=== PATIENT | male | born 1970 | race Caucasian/White ===

== ENCOUNTER 2025-07-05 11:51 | Outpatient (OUT) | payer BC, SELFPAY ==
--- OUTSIDE RECORDS SUMMARY | 2025-06-24 09:52 | XMS_ITS | Continuity of Care Document ---
Author Organization [facility] Address [address] [place] [address] Phone Care Team Providers Care Specialties Operator Name Role Phone Cornelius Arellano DO Primary Care Provider Cornelius Arellano DO Attending Provider [phone] Care Teams Patient Care Team Team Status: Active Member Role/Relationship Status Dates Cornelius Arellano DO Primary Care Provider Active Patient Care Team Team Status: Inactive Member Role/Relationship Status Dates Cornelius Arellano DO Primary Care Provider Active Start: June 24, 2025 End: June 24enjajonatan Arellano DOAttending ProviderActiveStart: June 24, 2025 End: June 24, 2025 Chief Complaint and Reason for Visit Chief Complaint Admit Date Wellness June 24, 2025 2:14pm Reason for Visit Admit Date Hypertension June 24, 2025 2:14pm Obesity June 24, 2025 2:14pm Positive colorectal cancer screening usi ng Cologuard test June 24, 2025 2:14pm Screening PSA (prostate specific antigen ) June 24, 2025 2:14pm Wellness examination June 24, 2025 2:14pm Allergies, Adverse Reactions, Alerts Allergen Type Severity Reaction Last Updated Verified Status No Known Allergies Allergy Unknown June 24, 2025 2:16pmYesActive Social History Smoking Status Unknown if ever smoked Observation Status Observation Response Date of Response Legal Sex Male (finding) Sex Assigned At Birth1970 Family History Relationship Condition Age at Onset Recorded Date/T sofi brother Unknown Heart diseaseUnknownfatherDeceasedUnknownMotor vehicle accidentUnknown Problems Active Problems Problem Diagnosis/Recorded Date Onset Date Stat us Screening PSA (prostate spec ific antigen) June 24, 2025 2:46pm Unknown Active Wellness examination June 22, 2025 8:04am Unknow n Active Positive colorectal cancer s creening using Cologuard test June 24, 2025 2:46pm Unknown Active Hypertension June 24, 2025 2:46pm Unknown A ctive Obesity June 24, 2025 2:45pm Unknown A ctive Medications Medication Status Dose Units Route Directions Qty Days Refills S tart Date Stop Date End Date Reason(s) Instructions Adherence Amlodipine 5 mg tablet Active 5 MG PO Daily June 24, 2025 12:00am Complies with drug therapy Vital Signs Vital Reading Result Reference Range Collection Date/Time Height 74 [in_i] June 24, 2025 2:45nhZqstdg205.61 kgNov2024 2:19pmHeart Rate71 /yjb39-442DtfdmcypJune 24, 2025 2:19pmRespiratory rate12 /fut72-30MuxnasdiJune 24, 2025 2:19pmBP Yjhlrggb419 mm[Hg]100-140Nov2024 2:19pmBP Siiomiuyi301 mm[Hg]60-100Nov2024 2:19pmBMI (Body Mass Index)34.4 kg/p4AerlfukjJune 24, 2025 2:19pm Advance Directives Advance Directive Response Recorded Date/ Time Advance Directives No June 4:34pm Insurance Providers Guarantor Judah Weiss , P Address [address] [place] [address]Xoxtfrf Info.Home Phone: Coverage Status Update:2024 Payer Group Member ID Coverage Type Subscriber Relationship to Subscriber Effective Date Expiration Date Dagoberto TORRES [id number] Weiss P Id: [id number] [address] [place] [address] Home Phone: Self[employer] Id: [id number] Rettenmund , P Id: [id number] [address] [place] [address] Home Phone: Self Encounters Encounter Location(s) Arrival/Admit Date Discharge/Departure Date Discharge/Departure Disposition Provider(s) Departed Physician/ Provider Office Visit -[facility] June 24, 2025 2:14pm June 24, 2025 2:52pm Discharged to home care or self care (routine discharge) Cornelius Arellano , DO Recent Diagnosis Onset Date Admit Date Hypertension Unknown June 24, 2 025 2:14pm Obesity Unknown June 24, 2 025 2:14pm Positive colorectal cancer s creening using Cologuard test Unknown June 24, 2025 2:14pm Screening PSA (prostate specific antigen) Unknow n June 24, 2025 2:14pm Wellness examination Unknown June 242024 2:14pm Assessments Diagnosis Onset Date Resolution Status Admit Date Hypertension acuteJune 24, 2025 2:14pmObesityacuteJune 24, 2025 2:14pmPositive colorectal cancer screening using Cologuard test2024 2:14pm Screening PSA (prostate specific antigen)2024 2:14pmWellness examination2024 2:14pm Plan of Treatment Author Cornelius Arellano [facility]2024 8:04amI have instructed this patient on the recommended lifestyle changes, which includes a low fat, high fiber diet along with a regular exercise routine. I have also reviewed the recommended age-appropriate preventive testing for this patient. I have also reviewed the recommended vaccines for their age and risk factors. Future Tests Future scheduled test information is unavailable Pending Tests Test Name Ordered Date Scheduled Date Comprehensive Metabolic Panel June 24 2:40pm Future Visits Future appointment information is unavailable Future Procedures Procedure Name Ordered Date Scheduled Date Complete Blood Count Auto Diff June 24 2:40pm [facility] 2:40pmPSA Screen (Yearly Only)June 24, 2025 2:40pmAMB CologuardJune 24, 2025 2:45pm Future Medications Future medication information is unavailable Patient Instructions Patient instructions are unavailable
[2025-07-05 12:43] LABS: Hematocrit 44.1 % (42.0-54.0); Hemoglobin 16.1 g/dL (14.0-18.0); Immature Granulocytes Abs Auto 0.04 10^3/uL (0.00-0.03); Immature Granulocytes Pct Auto 0.5 % (0.0-0.5); Lymphocytes Absolute Auto 1.8 10^3/uL (1.2-3.8); Mean Corpuscular HGB Conc 36.5 g/dL (29.9-35.2); Mean Corpuscular Hemoglobin 32.1 pg (25.9-34.0); Mean Corpuscular Volume 88.0 fL (80.0-94.0); Platelet Count 177 10^3/uL (150-450); Red Blood Count 5.01 10^6/uL (4.70-6.10); White Blood Count 8.0 10^3/uL (4.0-11.0)
[2025-07-05 13:04] LABS: Alanine Aminotransferase 50 U/L (16-63); Albumin Globulin Ratio 1.1; Albumin Level 3.9 g/dL (3.4-5.0); Alkaline Phosphatase 98 U/L (46-116); Anion Gap 15.1; Aspartate Amino Transferase 20 U/L (15-37); Blood Urea Nitrogen 10.0 mg/dL (7.0-18.0); Calcium 9.3 mg/dL (8.5-10.1); Carbon Dioxide 25.5 mmol/L (21.0-32.0); Chloride 101 mmol/L (98-107); Cholesterol 249 mg/dL (<=200); Estimated GFR (African America >60 (>=60 mL/min/1.73m^2); Estimated GFR (Non-African Ame >60 (>=60 mL/min/1.73m^2); Globulin 3.6 g/dL; Glucose 308 mg/dL (74-106); HDL Cholesterol 43 mg/dL (40-60); Potassium 4.6 mmol/L (3.5-5.1); Sodium 137 mmol/L (136-145); Total Protein 7.5 g/dL (6.4-8.2); Triglycerides 192 mg/dL (<=150); VLDL CHOLESTEROL 38.4 mg/dL
== END 2025-07-05 11:52 | disposition home or self-care (01) ==
PROVIDERS: PCP Internal Medicine; Visit Provider Internal Medicine
DX: Z00.00 Encounter for general adult medical examination without abnormal findings (principal); Z12.5 Encounter for screening for malignant neoplasm of prostate
CPT/HCPCS: 36415; 80053; 80061; 85025; G0103